=== PATIENT | male | born 1955 | race Hispanic/Latino ===

== ENCOUNTER 2016-09-25 10:24 | Emergency (ER) | payer MEDICAID ==
[2016-09-25 10:42] VITALS: BP 107/63
[2016-09-25 10:43] VITALS: BMI 24.6
[2016-09-25 10:49] VITALS: PULSE 94; RESP 20; TEMP 98; O2SAT 98
--- NOTE | 2016-09-25 10:56 | ED PDOC ---
Lower Extremity Pain/Injury Time Seen by Provider: 09/25/16 10:42 Chief Complaint (Nursing): Lower Extremity Problem/Injury Chief Complaint (Provider): Leg pain History Per: Patient Additional Complaint(s): acc to pt, he fell down stairs 3 days ago, landed on his knee, and has been having pain upon ambulation since that time. Past Medical History Reviewed: Nursing Documentation, Vital Signs Vital Signs: Last Vital Signs Temp 98 F 09/25/16 10:41 Pulse 94 H 09/25/16 10:41 Resp 20 09/25/16 10:41 BP 107/63 09/25/16 10:41 Pulse Ox 98 09/25/16 10:41 - Medical History PMH: Diabetes, HTN - Surgical History Surgical History: No Surg Hx - Family History Family History: States: Unknown Family Hx - Living Arrangements Living Arrangements: With Family - Social History Current smoker - smoking cessation education provided: Yes Alcohol: Social Drugs: Denies - Home Medications Home Medications: Ambulatory Orders Medication Instructions Recorded oxyCODONE/Acetaminophen [Percocet 1 ea PO Q6H PRN #15 tab 09/01/14 5/325 mg Tab] Polymyxin/Trimethoprim Sulfate 1 drop XX Q6H 10 Days 11/24/14 [Polytrim Ophth Soln] Cyclobenzaprine HCl [Flexeril] 10 mg PO Q8 #20 tab 02/15/15 Naproxen [Naprosyn] 500 mg PO BID #20 tab 02/15/15 Cyclobenzaprine [Cyclobenzaprine 10 mg PO TID #20 tab 05/15/16 HCl] Ibuprofen [Motrin] 600 mg PO Q6 #20 tab 05/15/16 traMADol [Ultram] 50 mg PO TID #10 tab 05/15/16 Ibuprofen [Motrin] 600 mg PO Q6 #20 tab 09/25/16 - Allergies Allergies/Adverse Reactions: Allergies Allergy/AdvReac Type Severity Reaction Status Date / Time No Known Allergies Allergy Verified 09/25/16 10:41 Review of Systems ROS Statement: Except As Marked, All Systems Reviewed And Found Negative Musculoskeletal: Positive for: Leg Pain Physical Exam - Reviewed Nursing Documentation Reviewed: Yes Vital Signs Reviewed: Yes - Physical Exam Appears: Positive for: Well, Non-toxic, No Acute Distress Head Exam: Positive for: ATRAUMATIC, NORMAL INSPECTION, NORMOCEPHALIC Skin: Positive for: Normal Color, Warm, DRY Eye Exam: Positive for: EOMI, Normal appearance, PERRL ENT: Positive for: Normal ENT Inspection Neck: Positive for: Normal, Painless ROM Cardiovascular/Chest: Positive for: Regular Rate, Rhythm Respiratory: Positive for: CNT, Normal Breath Sounds Gastrointestinal/Abdominal: Positive for: Normal Exam, Bowel Sounds, Soft Back: Positive for: Normal Inspection Extremity: Positive for: Normal ROM, Tenderness (over patella). Negative for: Deformity, Swelling Neurologic/Psych: Positive for: Alert, Oriented - ECG O2 Sat by Pulse Oximetry: 98 Medical Decision Making Medical Decision Making: XR: NAd, as read by RAKESH Medicated with Motrin PO Disposition - Clinical Impression Clinical Impression: Knee pain - Patient ED Disposition Is Patient to be Admitted: No - Disposition Disposition: Routine/Home Disposition Time: 15:38 Condition: GOOD Prescriptions: Ibuprofen [Motrin] 600 mg PO Q6 #20 tab Instructions: Knee Pain (ED) - POA Present On Arrival: None
--- NOTE | 2016-09-25 12:13 | RAD ---
PROCEDURE: Left Knee Radiographs. HISTORY: Pain. COMPARISON: None FINDINGS: BONES: Normal. No fracture. JOINTS: Medial osteoarthritis. No articular erosions. JOINT EFFUSION: None. OTHER FINDINGS: None. IMPRESSION: Medial osteoarthritis. No acute fracture.
== END 2016-09-25 14:34 | disposition home or self-care (01) ==
LOC: H.ER 10:24
DX: M17.12 Unilateral primary osteoarthritis, left knee (principal); E11.9 Type 2 diabetes mellitus without complications; I10 Essential (primary) hypertension